=== PATIENT | male | born 1935 | race Hispanic/Latino ===

== ENCOUNTER 2017-03-19 12:22 | Emergency (ER) | payer MEDICARE ==
[2017-03-19 12:59] VITALS: RESP 18; TEMP 98; O2SAT 95; BMI 29.2
--- NOTE | 2017-03-19 13:16 | ED PDOC ---
Arrival/HPI <Benito Jackman - Last Filed: 03/19/17 18:21> - General Historian: Patient - History of Present Illness Time/Duration: > week Symptom Onset: Gradual Symptom Course: Unchanged Activities at Onset: Light Context: Home <Erik Beltran - Last Filed: 03/20/17 15:58> - General Chief Complaint: Dizziness/Lightheaded Time Seen by Provider: 03/19/17 12:54 - History of Present Illness Narrative History of Present Illness (Text): 03/19/17 13:13 Pt is an 81 yo M with PMH of ?CHF, ?HLD presents to Emergency department with complaining of dizziness for the past 2 weeks. Pt state that dizziness is insidious in onset. Pt denies any syncopal or near-syncopal events. Pt states that dizziness is positional; it gets worse lying to sitting or bending over. Pt states that he is able to walk, but is tentative because he is afraid he wont be able to get up if he falls. Pt denied chest pain, sob, nausea, vomiting , diarrhea , abdominal pain, fever, chills, headache, or dysuria. (Benito Jackman ) Past Medical History - Provider Review Nursing Documentation Reviewed: Yes <Erik Beltran - Last Filed: 03/20/17 15:58> Family/Social History - Physician Review Nursing Documentation Reviewed: Yes Family/Social History: Unknown Family HX <Erik Beltran - Last Filed: 03/20/17 15:58> Allergies/Home Meds <Benito Jackman - Last Filed: 03/19/17 18:21> <Erik Beltran - Last Filed: 03/20/17 15:58> Allergies/Adverse Reactions: Allergies No Known Allergies Allergy (Verified 03/19/17 12:54) Home Medications: Home Meds Medication Instructions Recorded Confirmed Aspirin [Aspirin Chewable] 81 mg PO DAILY 03/19/17 03/19/17 Atorvastatin [Lipitor] 40 mg PO DAILY 03/19/17 03/19/17 Furosemide [Lasix] 20 mg PO DAILY 03/19/17 03/19/17 Isosorbide Mononitrate [Imdur] 30 mg PO DAILY 03/19/17 03/19/17 Metoprolol Succinate [Toprol XL] 25 mg PO DAILY 03/19/17 03/19/17 Potassium Chloride [Klor-Con 10 meq PO DAILY 03/19/17 03/19/17 Sprinkle] Review of Systems - Review of Systems Constitutional: Normal Eyes: Normal ENT: Normal Respiratory: Normal Cardiovascular: Normal Gastrointestinal: Normal Genitourinary Male: Normal Musculoskeletal: Normal Skin: Normal Neurological: Normal Endocrine: Normal Hemo/Lymphatic: Normal Psychiatric: Normal <Benito Jackman - Last Filed: 03/19/17 18:21> - Physician Review All systems were reviewed & negative as marked: Yes <Erik Beltran - Last Filed: 03/20/17 15:58> Physical Exam - Systems Exam Head: Present: Atraumatic, Normocephalic Pupils: Present: PERRL Neck: Present: Normal Range of Motion Respiratory/Chest: Present: Clear to Auscultation. No: Accessory Muscle Use, Wheezes, Rales, Rhonchi Cardiovascular: Present: Regular Rate and Rhythm, Normal S1, S2. No: Murmurs Abdomen: No: Tenderness, Distention, Peritoneal Signs, Rebound, Guarding Back: Present: Normal Inspection Upper Extremity: Present: Normal Inspection Lower Extremity: Present: Normal Inspection Neurological: Present: Speech Normal Skin: Present: Warm, Dry, Normal Color. No: Rashes Psychiatric: Present: Alert, Oriented x 3 <Benito Jackman - Last Filed: 03/19/17 18:21> Vital Signs Reviewed: Yes Temperature: Afebrile Blood Pressure: Normal Pulse: Regular Respiratory Rate: Normal Appearance: Positive for: Well-Appearing, Non-Toxic, Comfortable Pain Distress: None Mental Status: Positive for: Alert and Oriented X 3 <Erik Beltran - Last Filed: 03/20/17 15:58> Vital Signs Temp Pulse Resp BP Pulse Ox 03/19/17 16:10 75 18 132/73 95 03/19/17 12:58 98.0 F 82 18 136/71 95 Medical Decision Making <Benito Jackman - Last Filed: 03/19/17 18:21> <Erik Beltran - Last Filed: 03/20/17 15:58> ED Course and Treatment: 03/19/17 13:17 Assessment: 81 yo M presents to Emergency department with complaining of dizziness. Plan: - CBC - CMP - Cardiac enzymes - EKG - Head CT (Benito Jackman) 03/19/17 13:23 81 year old male presents to the Emergency department for dizziness. In agreement with resident note, which includes further HPI details. Patient was seen and evaluated with resident, came up with plan and treatment together. 03/20/17 15:56 pt seen with resdient. vertigo/dizziness, difficulty ambulating, clinical concern for cva. pt ama after request for admission. noted leukocytosis, pt reports h/o of leukocytosis, uncertain baseline (Raswant,Erik) - Lab Interpretations Lab Results: 03/19/17 13:44 03/19/17 13:44 Lab Results 03/19/17 13:49: POC Glucose (mg/dL) 85 03/19/17 13:44: Sodium 141, Potassium 4.4, Chloride 105, Carbon Dioxide 24, Anion Gap 16, BUN 14, Creatinine 0.8, Est GFR ( Amer) > 60, Est GFR (Non- Af Amer) > 60, Random Glucose 89, Calcium 9.7, Magnesium 2.2, Total Bilirubin 0.7, AST 29, ALT 44, Alkaline Phosphatase 59, Lactate Dehydrogenase 462, Total Creatine Kinase 69, Troponin I < 0.01, Total Protein 6.6, Albumin 4.3, Globulin 2.3, Albumin/Globulin Ratio 1.9 H 03/19/17 13:44: PT 11.4, INR 1.00, APTT 38.6 H 03/19/17 13:44: WBC 37.2 H*, RBC 5.01, Hgb 15.1, Hct 46.8, MCV 93.4, MCH 30.1, MCHC 32.3, RDW 16.2 H, Plt Count 181, MPV 11.2 H, Gran % 17.4 L, Lymph % (Auto) 79.7 H, [place] % (Auto) 2.2, Eos % (Auto) 0.5 L, Baso % (Auto) 0.2, Gran # 6.46, Lymph # (Auto) 29.7 H, [place] # (Auto) 0.8 H, Eos # (Auto) 0.2, Baso # (Auto) 0.07 , Neutrophils % (Manual) 21 L, Lymphocytes % (Manual) 60 H, Atypical Lymphs % 14 H, Monocytes % (Manual) 5, Platelet Evaluation Normal - RAD Interpretation Radiology Orders: 03/19/17 13:14 HEAD W/O CONTRAST [CT] Stat 03/19/17 14:06 CXR [CHEST PORTABLE] [RAD] Stat <AugustinaBenito - Last Filed: 03/19/17 18:21> - PA / COLLECTION AGENT / Resident Statement MD/DO has reviewed & agrees with the documentation as recorded. MD/DO has examined the patient and agrees with the treatment plan. - Scribe Statement The provider has reviewed the documentation as recorded by the Scribe <Erik Beltran - Last Filed: 03/20/17 15:58> - Scribe Statement [place]. All medical record entries made by the Scribe were at my direction and personally dictated by me. I have reviewed the chart and agree that the record accurately reflects my personal performance of the history, physical exam, medical decision making, and the department course for this patient. I have also personally directed, reviewed, and agree with the discharge instructions and disposition. (Erik Beltran) Disposition/Present on Arrival - Present on Arrival Any Indicators Present on Arrival: No - Disposition Have Diagnosis and Disposition been Completed?: Yes Disposition Time: 18:22 <Benito Jackman - Last Filed: 03/19/17 18:21> <Erik Beltran - Last Filed: 03/20/17 15:58> - Disposition Diagnosis: Dizziness, Leukocytosis Disposition: AGAINST MEDICAL ADVICE Condition: UNKNOWN Discharge Instructions (ExitCare): Leukocytosis (DC), Near Syncope (ED), Dizziness (ED), Against Medical Advice (ED) Additional Instructions: please follow up with your doctor. return toe r with worsening symptoms or concerns. you are able tor return to any er with any concern. Referrals: Ravinder Fish MD [Staff Provider] - Follow up with primary Forms: [employer] ([place])
[2017-03-19 13:55] LABS: BASO # 0.07 K/mm3 (0.0-2.0); BASO % 0.2 % (0.0-3.0); EOS # 0.2 (0.0-0.7); EOS % 0.5 % (1.5-5.0); GRAN # 6.46 (1.4-6.5); GRAN % 17.4 % (50.0-68.0); HEMOGLOBIN 15.1 g/dL (14.0-18.0); LYMPH # 29.7 (1.2-3.4); LYMPH % 79.7 % (22.0-35.0); MEAN CELL VOLUME 93.4 fl (80.0-105.0); MEAN CORPUSCULAR HEMOGLOBIN 30.1 pg (25.0-35.0); MEAN CORPUSCULAR HGB CONC 32.3 g/dl (31.0-37.0); MEAN PLATELET VOLUME 11.2 fl (7.0-11.0); MONO # 0.8 (0.1-0.6); MONO % 2.2 % (1.0-6.0); PLATELET COUNT 181 10^3/uL (120.0-450.0); RBC 5.01 10^6/uL (3.5-6.1); RED CELL DISTRIBUTION WIDTH 16.2 % (11.5-14.5)
[2017-03-19 14:05] LABS: WHITE BLOOD COUNT 37.2 10^3/ul (4.5-11.0)
[2017-03-19 14:08] LABS: ALB/GLOB RATIO 1.9 (1.1-1.8); ALBUMIN 4.3 g/dL (3.0-4.8); ALT/SGPT 44 U/L (7-56); AST/SGOT 29 U/L (17-59); BLOOD UREA NITROGEN 14 mg/dL (7-21); CALCIUM 9.7 mg/dL (8.4-10.5); GFR AFRICAN-AMERICAN > 60; GFR NON-AFRICAN AMERICAN > 60; MAGNESIUM 2.2 mg/dL (1.7-2.2)
[2017-03-19 14:18] LABS: TROPONIN I < 0.01 ng/mL
[2017-03-19 14:29] LABS: PROTHROMBIN TIME 11.4 SECONDS (9.4-12.5)
[2017-03-19 14:30] LABS: PARTIAL THROMBOPLASTIN TIME 38.6 Seconds (25.1-36.5)
[2017-03-19 14:36] LABS: ATYPICAL LYMPHOCYTE 14 % (0.0-0.0); LYMPHOCYTE 60 % (22.0-35.0); MONOCYTE 5 % (1.0-6.0); NEUTROPHIL 21 % (50.0-70.0)
[2017-03-19 14:38] LABS: PLATELET ESTIMATE NORMAL (NORMAL)
--- NOTE | 2017-03-19 15:05 | CT ---
PROCEDURE: CT HEAD WITHOUT CONTRAST. HISTORY: near syncope COMPARISON: None available. TECHNIQUE: Axial computed tomography images were obtained through the head/brain without intravenous contrast. Radiation dose: Total exam DLP = 1046.35 mGy-cm. This CT exam was performed using one or more of the following dose reduction techniques: Automated exposure control, adjustment of the mA and/or kV according to patient size, and/or use of iterative reconstruction technique. FINDINGS: HEMORRHAGE: No intracranial hemorrhage. BRAIN: There are mild chronic microangiopathic changes. There is no mass, mass effect or abnormal extra-axial fluid collection.There are coarse atherosclerotic calcifications in the cavernous carotid arteries. VENTRICLES: There is moderate age-related global parenchymal volume loss and proportionate enlargement of the ventricles and cortical sulci. There is a cavum septum pellucidum. CALVARIUM: The skull base and calvarium are normal. PARANASAL SINUSES: Predominantly clear. MASTOID AIR CELLS: Predominantly clear. OTHER FINDINGS: None. IMPRESSION: No acute intracranial abnormality. Mild chronic microangiopathic changes and moderate age-related global parenchymal volume loss.
--- NOTE | 2017-03-19 15:40 | RAD ---
HISTORY: leukocytosis COMPARISON: 04/11/2013 FINDINGS: LUNGS: The lungs are hyperinflated and there is peribronchial thickening with chronic changes in both lungs. There is linear atelectasis/ scarring in both lower lobes. PLEURA: No significant pleural effusion identified, no pneumothorax apparent. CARDIOVASCULAR: Normal. OSSEOUS STRUCTURES: No significant abnormalities. VISUALIZED UPPER ABDOMEN: Normal. OTHER FINDINGS: None. IMPRESSION: No active pulmonary disease. COPD.
[2017-03-19 16:17] VITALS: BP 132/73; PULSE 75
--- NOTE | 2017-03-20 09:56 | CARD ---
APPROVED REPORT EKG Measurement Heart [id number] <Conclusion> Sinus rhythm with occasional premature ventricular complex Left axis deviation/LAHB RVCD PRWP
== END 2017-03-19 16:34 | disposition left against medical advice (07) ==
LOC: ED 12:22
DX: R42 Dizziness and giddiness (principal); D72.829 Elevated white blood cell count, unspecified